=== PATIENT | male | born 1970 | race Caucasian/White ===

== ENCOUNTER 2016-08-26 22:51 | Emergency (ER) | payer OTHER ==
--- NOTE | ~2016-08-26 | CT71 ---
[facility] A Service of [facility] RADIOLOGY TEXT RESULTS PATIENT: SHIRLEY CARDOZO LOCATION: SED : 74 UNIT #: [id number] AGE: [address]: Gato Sanchez MD SEX: M ORDER DR: [id number] [place] [id number] E MR#: [id number] #: [id number] NAME: SHIRLEY CARDOZO. : 1970 SEX: M STUDY DATE/TIME: 08/26/2016 23:20 UNIT: SED ROOM: STUDY DESCRIPTION: CT Head Wo Contrast Attending Physician: Gato Sanchez M.D. Ordering Physician: Gato Sanchez M.D. Primary Care Physician: Jose Morales M.D. MEDICAL IMAGING REPORT This report is preliminary unless electronic signature is present. EXAM CT head without IV contrast COMPARISON August 02, 2014 and June 29, 2012. INDICATION 46-year-old male with severe headache since 04:00 p.m. today. TECHNIQUE This CT exam was performed with one or more of the following radiation dose reduction techniques: automatic exposure control, adjustment of mA and/or kV according to patient size, and iterative reconstruction. FINDINGS Mastoid air cells, middle ears and visualized paranasal sinuses are well-aerated. There is mild mucosal thickening of the visualized ethmoid air cells, improved from August 02, 2014. No acute fractures or suspicious osseous lesions. Normal cerebral volume. No mass effect or abnormal extraaxial fluid collection. No acute intracranial hemorrhage. No evidence of acute ischemia. IMPRESSION No acute intracranial abnormality. Improved mild mucosal thickening of the ethmoid air cells. Dictated by... Maxx Suazo M.D. THIS IS AN ELECTRONICALLY VERIFIED REPORT Maxx Suazo M.D. at 08/27/2016 8:22 AM ZARIA/[facility] A Service of [facility] RADIOLOGY TEXT RESULTS PATIENT: SHIRLEY CARDOZO [place] [facility] [place] 74 [place]IT #: [id number] AGE: [address]: Gato Sanchez MD SEX: M ORDER DR: TD: 08/27/2016 08:02 JOB #: [id number] MEDICAL IMAGING REPORT
[~2016-08-26 22:51] MED LIST: "\\\"MUSCLE RELAXER\\\""; BENZONATATE PO; CIPRO PO; DETROL PO; DITROPAN PO; FLEXERIL10 M1 PO; FLEXERIL10 MG PO; FLOMAX0.4 M1 PO; FLOMAX0.4 MG PO; IBUPROFEN PO; IBUPROFEN800 MG PO; KEFLEX500 M1 PO; KEFLEX500 MG PO; LEVAQUIN PO; LORTAB 10-5001 EACH PO; LORTAB 5/500 TA1 TA1 PO; LORTAB 7.5-5001 TAB PO; MOTRIN600 M2 PO; MOTRIN600 MG PO; NO MEDICATIONS; NORCO 10-325 TA1 TAB PO; NORCO1 TAB 10/3 PO; PENNSAID150 ML TP; PERCOCET 10/3251 TAB PO; PERCOCET5/325 PO; PHENERGAN PO; PHENERGAN25 MG PO; POLYTRIM EYE DR10 ML OP; PREDNISONE PO; PYRIDIUM PO; ROBAXIN PO; SEPTRA DS; TUSSIONEX PENN473 ML PO; TYLENOL #3 PO; ULTRAM PO; UROXATRAL10 MG PO; VICODIN 5/1 TAB 5/50 PO; VICODIN 5/500 T1 TAB PO; VOLTAREN75 MG PO; ZITHROMAX PO; ZOFRAN ODT4 MG PO; ZYRTEC
== END 2016-08-27 02:04 | disposition home or self-care (01) ==
LOC: SED 22:51
DX: R51 Headache (principal); F17.200 Nicotine dependence, unspecified, uncomplicated; Z87.442 Personal history of urinary calculi
CPT/HCPCS: 70450; 96374; 96375; 99284; J0780; J1100; J1200; J1885; J3475